=== PATIENT | female | born 1970 | race Caucasian/White ===

== ENCOUNTER 2018-08-07 09:38 | Day surgery (SDC) | payer BC ==
[2018-08-03 11:21] LABS: CLARITY,URINE CLEAR (Clear); COLOR,URINE YELLOW (Yellow); GLUCOSE, URINE NEGATIVE (Neg); KETONES,URINE NEGATIVE (Neg); LEUKOCYTE ESTERASE ,URINE NEGATIVE (Neg); NITRITES, URINE NEGATIVE (Neg); OCCULT BLOOD,URINE NEGATIVE (Neg); PROTEIN,URINE NEGATIVE (Neg); UA COLLECTION TYPE CLN CATCH MIDSTREAM; UROBILINOGEN,URINE 0.2 E.U/dL (0.2-1.0)
[2018-08-03 11:22] LABS: BASOPHILS % (AUTO) 0.5 % (0-1); EOSINOPHILS # (AUTO) 0.1 X10'3 (0-0.9); EOSINOPHILS % (AUTO) 1.6 % (0-6); LYMPHOCYTES # (AUTO) 1.4 X10'3 (1.1-4.8); LYMPHOCYTES % (AUTO) 18.7 % (21-51); MEAN CORPUSCULAR HEMOGLOBIN 32.2 PG (27.0-31.0); MEAN CORPUSCULAR HGB CONC 33.5 g/dL (33.0-36.5); MEAN CORPUSCULAR VOLUME 96.1 FL (78-98); MEAN PLATELET VOLUME 8.9 FL (7.4-10.4); MONOCYTES # (AUTO) 0.5 X10'3 (0-0.9); MONOCYTES % (AUTO) 6.8 % (2-12); NEUTROPHILS # (AUTO) 5.5 X10'3 (1.8-7.7); NEUTROPHILS % (AUTO) 72.4 % (42-75); PRE OP HEMATOCRIT 44.3 % (35.0-45.0); PRE OP HEMOGLOBIN 14.8 g/dL (12.0-16.0); PRE OP PLATELET COUNT 243 X10'3 (140-440); RED BLOOD COUNT 4.61 X10'6 (4.20-5.60); RED CELL DISTRIBUTION WIDTH 14.4 % (11.5-14.5)
[2018-08-03 11:32] LABS: ALBUMIN 3.8 G/DL (3.4-5.0); ALBUMIN/GLOBULIN RATIO 1.1 (1.1-1.5); ALKALINE PHOSPHATASE 45 IU/L (46-116); BLOOD UREA NITROGEN 9 MG/DL (7-18); BUN/CREATININE RATIO 11.8 (6.6-38.0); CALCIUM 9.4 MG/DL (8.5-10.1); CHLORIDE 106 MMOL/L (99-107); CREATININE 0.76 MG/DL (0.40-0.90); PRE OP ALT 29 U/L (30-65); PRE OP ANION GAP 10 (8-16); PRE OP AST 14 U/L (10-37); PRE OP BILIRUB, TOTAL 0.3 MG/DL (0.0-1.0); PRE OP GLUCOSE 90 MG/DL (70-104); PRE OP SODIUM 143 MMOL/L (135-145); TOTAL CARBON DIOXIDE 27.5 MMOL/L (24-32); TOTAL PROTEIN 7.3 G/DL (6.4-8.2); eGFR 82 ML/MIN
[2018-08-07] VITALS (7 sets, daily range): BP systolic 112–157; BP diastolic 49–99
[~2018-08-07] VITALS: Ht 165.1 cm; Wt 99.3 kg
[~2018-08-07 09:38] MED LIST: NO HOME MEDS; ceFAZolin 2gm in dextrose, iso 100 ML IV ONE; famotidine 20mg tablet PO ONE; meperidine/PF 25mg/ml syringe IV PRN; morphine 4 MG/ML inj SYRINge IV PRN; ondansetron/PF 4mg/2ml inj IV PRN; proCHLORperazine 10 MG/2 ml inj IV PRN; ringers solution, lacted 1,000 ML IV SCH
[2018-08-07] MEDS ORDERED: LIDOcaine 1% (10mg/ml) 2ml vial ONE (10:21)
[2018-08-07] MEDS ORDERED: CHOL100046 PO (11:06)
[2018-08-07] MEDS ORDERED: ROPIVAcaine 0.5% (5mg/ml) 30ml vial ONE (14:15)
[2018-08-07] MEDS ORDERED: LIDOcaine 1% 30ml preserv. free vial ONE (14:15)
[2018-08-07] MEDS ORDERED: sevoflurane 250ml liquid IH ONE (14:40)
[2018-08-07] MEDS ORDERED: ketorolac trometh. 30mg/ml inj. ONE (14:40)
[2018-08-07] MEDS ORDERED: fentaNYL/PF 50MCG/1 ML 2ML syringe ONE ×2 (14:44→15:33)
[2018-08-07] MEDS ORDERED: midazolam 2 mg/2 ml injection ONE (14:44)
[2018-08-07] MEDS ORDERED: propofol inj 20 ML IV ONE (14:50)
[2018-08-07] MEDS ORDERED: dexamethasone sod phosphate 4mg/ml inj. ONE (14:50)
[2018-08-07] MEDS ORDERED: ondansetron/PF 4mg/2ml inj ONE (14:52)
--- NOTE | 2018-08-07 16:10 | NUR ---
Received from OR via [facility], accompanied by Anesthesiologist DR. BEJARANO and report given by Anesthesiolgist. PT CAME OUT VERY ANXIOUS, SOB, RT PAGED FOR BREATHING TX, PT STATED SHE IS VERY PAINFUL IN HER VAGINA, MEDICATED FOR PAIN. EVENTUALLY CALMED. BOYFRIEND INTO SEE PT AND HELP RELAX HERE. ISIDRO WITH GOOD CSM. PULSES AND BIOINFORMATICS TECHNICIAN WNL.
[2018-08-07] MEDS ORDERED: albuterol 2.5 MG/3 ML nebule ONE (16:11)
[2018-08-07] MEDS ORDERED: albuterol 2.5 MG/3 ML nebule NEB ONE (16:11)
[2018-08-07] MEDS: meperidine/PF 25mg/ml syringe IV PRN ×2 (16:16→16:22)
--- NOTE | 2018-08-07 17:10 | NUR ---
PT UP AND DRESSED. PER PT PAIN MUCH RELIEVED BY STANDING UP AND VOIDING. DC INSTR READ TO PT AND BOYFRIEND, BOTH VERBALIZED UNDERSTANDING. IV DC. PT TO POV VIA W/C FOR DC HOME
== END 2018-08-07 17:10 | disposition home or self-care (01) ==
LOC: PAS 09:38
PROVIDERS: ATTEND Surgery
DX: K64.2 Third degree hemorrhoids (principal); K64.4 Residual hemorrhoidal skin tags; K62.0 Anal polyp; E66.9 Obesity, unspecified; Z87.891 Personal history of nicotine dependence
CPT/HCPCS: 36415; 46260; 80053; 81003; 82948; 85025; 93005; 94640; 94760; A6224; A6449; J0690; J1100; J1885; J2175; J2250; J2270; J2405; J2704; J3010; J3490; J7120; A7000; J2795

== ENCOUNTER 2024-02-15 00:12 | Emergency (ER) | payer BC, OTHER ==
[~2024-02-15] VITALS: Ht 165.1 cm; Wt 97.7 kg
[~2024-02-15 00:12] MED LIST changes: +CHOL100046 PO; -ceFAZolin 2gm in dextrose, iso 100 ML IV ONE; -famotidine 20mg tablet PO ONE; -meperidine/PF 25mg/ml syringe IV PRN; -morphine 4 MG/ML inj SYRINge IV PRN; -ondansetron/PF 4mg/2ml inj IV PRN; -proCHLORperazine 10 MG/2 ml inj IV PRN; -ringers solution, lacted 1,000 ML IV SCH
[2024-02-15] MEDS ORDERED: iohexol 300mg/ml 100ml inj. ONE (01:27)
[2024-02-15 01:32] LABS: BILIRUBIN,URINE NEGATIVE (Neg); COLOR,URINE YELLOW (Yellow); GLUCOSE, URINE NEGATIVE (Neg); KETONES,URINE NEGATIVE (Neg); LEUKOCYTE ESTERASE ,URINE LARGE (Neg); NITRITES, URINE NEGATIVE (Neg); OCCULT BLOOD,URINE MODERATE (Neg); PROTEIN,URINE NEGATIVE (Neg); UROBILINOGEN,URINE 0.2 E.U/dL (0.2-1.0)
[2024-02-15] MEDS: acetaminophen 325mg tablet PO ONE (01:37)
[2024-02-15] MEDS: normal saline 1000ml 1,000 ML IV ONE (01:37)
[2024-02-15 01:38] LABS: BASOPHILS # (AUTO) 0.1 X10'3 (0-0.2); BASOPHILS % (AUTO) 0.6 % (0-1); EOSINOPHILS # (AUTO) 0.1 X10'3 (0-0.9); EOSINOPHILS % (AUTO) 0.4 % (0-6); HEMATOCRIT 41.8 % (35.0-45.0); LYMPHOCYTES # (AUTO) 1.7 X10'3 (1.1-4.8); LYMPHOCYTES % (AUTO) 11.1 % (21-51); MEAN CORPUSCULAR HEMOGLOBIN 31.8 PG (27.0-31.0); MEAN CORPUSCULAR HGB CONC 33.5 g/dL (33.0-36.5); MEAN CORPUSCULAR VOLUME 94.8 FL (78-98); MEAN PLATELET VOLUME 8.2 FL (7.4-10.4); MONOCYTES # (AUTO) 0.8 X10'3 (0-0.9); MONOCYTES % (AUTO) 5.1 % (2-12); NEUTROPHILS # (AUTO) 12.6 X10'3 (1.8-7.7); NEUTROPHILS % (AUTO) 82.8 % (42-75); PLATELET COUNT 286 X10'3 (140-440); RED BLOOD COUNT 4.41 X10'6 (4.20-5.60); RED CELL DISTRIBUTION WIDTH 13.9 % (11.5-14.5); WHITE BLOOD COUNT 15.2 X10'3 (4.5-11.0)
[2024-02-15 01:43] LABS: CLARITY,URINE SLIGHTLY CLOUDY (Clear); UA COLLECTION TYPE CLN CATCH MIDSTREAM
[2024-02-15 01:48] LABS: ALBUMIN 3.8 G/DL (3.4-5.0); ANION GAP 12 (8-16); BLOOD UREA NITROGEN 7 MG/DL (7-18); BUN/CREATININE RATIO 6.9 (10.0-20.0); CALCIUM 9.1 MG/DL (8.5-10.1); CHLORIDE 101 MMOL/L (99-107); CREATININE 1.01 MG/DL (0.40-0.90); GLUCOSE 167 MG/DL (70-104); MAGNESIUM 2.2 MG/DL (1.5-2.4); SODIUM 136 MMOL/L (135-145); TOTAL CARBON DIOXIDE 23.3 MMOL/L (24-32); eCRCL 59 ML/MIN; eGFR 58 ML/MIN
[2024-02-15 01:55] LABS: BACTERIA,URINE 1+ /HPF (Neg); WBC,URINE TNTC /HPF (0-4)
[2024-02-15 01:56] LABS: RENAL CELLS, URINE FEW /HPF; SQUAMOUS EPITHELIAL CELL,UR FEW /LPF (FEW); TRANSITIONAL EPI CELLS,URINE FEW /HPF
[2024-02-15] MEDS ORDERED: CEPH-585 PO (03:23)
[2024-02-15] MEDS: CefTRIAXone 2gm/D5W 50ml BAG 50 ML IV ONE (03:25)
[2024-02-15 03:42] VITALS: BP 126/67; PULSE 81; RESP 16; TEMP 98; O2SAT 96
== END 2024-02-15 04:06 | disposition home or self-care (01) ==
LOC: ER 00:14
DX: N39.0 Urinary tract infection, site not specified (principal); R10.9 Unspecified abdominal pain; R11.0 Nausea
CPT/HCPCS: 36415; 74177; 80048; 81001; 83605; 83735; 84145; 85025; 87040; 87070; 87077; 87088; 87186; 87210; 96361; 96365; 99285; J0696; J7030; Q9967